=== PATIENT | female | born 1985 | race Caucasian/White ===

== ENCOUNTER 2016-12-06 21:11 | Emergency (ER) | payer MEDICAID, OTHER ==
--- NOTE | 2016-12-06 21:58 | RAD ---
RIGHT HAND THREE VIEW 12/06/16 HISTORY: Fall from standing landing on back and the right hand. COMPARISON: None. FINDINGS: Accessory ossicle on the dorsal aspect of the base of the fifth metacarpal. No acute fracture or mal alignment. Old fifth metacarpal neck fracture. IMPRESSION: No acute fracture or malalignment. POS: DASH
--- NOTE | 2016-12-06 22:01 | RAD ---
LUMBAR SPINE THREE VIEW 12/06/16 HISTORY: Fall from standing. COMPARISON: Lumbar spine 2011. FINDINGS: Five nonribbearing lumbar type vertebrae. No acute fracture or malalignment. Vertebral body heights and disc spaces are within normal limits except for mild narrowing at L5-S1 with some osteophyte for mation. IMPRESSION: Mild spondylosis of L5-S1. POS: DASH
[2016-12-06] MEDS ORDERED: HYDROcodone/Acetaminophen 5/325 mg Tablet ONE (22:07)
== END 2016-12-06 22:40 | disposition home or self-care (01) ==
LOC: BURERS 21:11
DX: S33.5XXA Sprain of ligaments of lumbar spine, initial encounter (principal); S60.221A Contusion of right hand, initial encounter; F17.210 Nicotine dependence, cigarettes, uncomplicated; W01.0XXA Fall on same level from slipping, tripping and stumbling without subsequent striking against object, initial encounter
CPT/HCPCS: 72100

== ENCOUNTER 2016-12-08 16:32 | Emergency (ER) | payer OTHER ==
[2016-12-08] MEDS ORDERED: Ketorolac Tromethamine 60 MG/2 ML VIAL ONE (16:53)
[2016-12-08] MEDS ORDERED: Cyclobenzaprine 10 MG TAB ONE (16:53)
== END 2016-12-08 17:09 | disposition home or self-care (01) ==
LOC: BURERS 16:32
DX: M54.41 Lumbago with sciatica, right side (principal); F17.210 Nicotine dependence, cigarettes, uncomplicated
CPT/HCPCS: 96372; J1885

== ENCOUNTER 2018-05-12 17:59 | Emergency (ER) | payer OTHER, SELFPAY | END 2018-05-12 18:20 | disposition home or self-care (01) | LOC: BURERS 17:59 | DX: B34.9 Viral infection, unspecified (principal); F17.210 Nicotine dependence, cigarettes, uncomplicated | CPT/HCPCS: 99281 ==

== ENCOUNTER 2018-06-27 08:21 | Emergency (ER) | payer SELFPAY ==
[2018-06-27] MEDS ORDERED: Ondansetron ODT 4 MG TAB ONE (08:34)
[2018-06-27 09:08] LABS: #Basophils 0.1 thou/uL (0.0-0.2); #Eosinphils 0.1 thou/uL (0.0-0.7); #Lymphocytes 2.1 thou/uL (1.20-3.40); #Monocytes 0.7 thou/uL (0.11-0.59); %Basophils 1.2 % (0.0-1.0); %Eosinophils 1.5 % (0.0-10.0); %Lymphocytes 30.1 % (21.0-51.0); %Monocytes 10.1 % (0.0-10.0); %Neutrophils 57.1 % (42.0-75.0); Hemoglobin 14.7 g/dL (12.0-16.0); Mean Corpuscular HGB CONC 34.1 g/dL (32.0-36.0); Mean Corpuscular Volume 82.2 fL (78.0-98.0); Mean Platelet Volume 7.5 fL (7.4-10.4); Platelet Count 241 thou/uL (130-400); RBC Distribution Width 12.9 % (11.5-14.5); Red Blood Cell (RBC) Count 5.24 mill/uL (4.20-5.40); White Blood Cell (WBC) Count 6.9 thou/uL (4.8-10.8)
[2018-06-27] MEDS ORDERED: Promethazine HCl 25 MG/ML VIAL ONE (09:08)
[2018-06-27] MEDS ORDERED: Sodium Chloride 0.9% 100 ML ONE (09:08)
[2018-06-27] MEDS ORDERED: Famotidine In NaCl 20 mg/50 ml Premix Bag ONE (09:08)
[2018-06-27 09:11] LABS: Clarity Cloudy (Clear); Glucose, Urine (Dipstick) Negative (Negative); Leukocyte Trace (Negative); Nitrite Negative (Negative); Protein, Urine (Dipstick) Negative (Neg-Trace); Urobilinogen 0.2 mg/dL (0.2-1.0); pH, Urine 8.5 (5.0-9.0)
[2018-06-27 09:12] LABS: Bilirubin Negative (Negative); Blood, Urine Negative (Negative)
[2018-06-27 09:15] LABS: Bacteria/HPF 2+ HPF (None Seen); RBC/HPF 0-3 HPF (0-3); WBC/HPF 0-3 HPF (0-3)
[2018-06-27 09:25] LABS: ALT (SGPT) 17 U/L (8-55); AST (SGOT) 17 U/L (5-34); Albumin 4.3 g/dL (3.5-5.0); Alkaline Phosphatase 107 U/L (40-150); Anion Gap 11 mmol/L (10-20); BUN (Urea Nitrogen) 13 mg/dL (7.0-18.7); Bilirubin, Total 0.4 mg/dL (0.2-1.2); Calc. Creatinine Clearance 0 mL/min (70-130); Calcium 9.3 mg/dL (7.8-10.44); Carbon Dioxide 23 mmol/L (22-29); Chloride 108 mmol/L (98-107); Estimated GFR-MDRD 75; Globulin 3.2 g/dL (2.4-3.5); Glucose 88 mg/dL (70-105); Lipase 22 U/L (8-78); Potassium 4.4 mmol/L (3.5-5.1); Protein, Total 7.5 g/dL (6.0-8.3); Sodium 138 mmol/L (136-145)
== END 2018-06-27 10:29 | disposition home or self-care (01) ==
LOC: BURERS 08:21
DX: R11.2 Nausea with vomiting, unspecified (principal); R19.7 Diarrhea, unspecified; Z87.891 Personal history of nicotine dependence; Z79.899 Other long term (current) drug therapy
CPT/HCPCS: 80053; 81003; 81015; 83690; 85025; 87086; 94760; 96365; 96375; J2550; J7050; Q0162

== ENCOUNTER 2018-09-17 18:13 | Emergency (ER) | payer SELFPAY ==
[2018-09-17] MEDS ORDERED: Clindamycin 150 MG CAP ONE (18:53)
[2018-09-17] MEDS ORDERED: HYDROcodone/Acetaminophen 10/325 mg Tablet ONE (18:53)
== END 2018-09-17 19:00 | disposition home or self-care (01) ==
LOC: BURERS 18:13
DX: K04.7 Periapical abscess without sinus (principal); K02.9 Dental caries, unspecified; Z87.891 Personal history of nicotine dependence; Z79.899 Other long term (current) drug therapy
CPT/HCPCS: 99282

== ENCOUNTER 2018-10-27 16:19 | Emergency (ER) | payer SELFPAY | END 2018-10-27 16:58 | disposition home or self-care (01) | LOC: BURERS 16:19 | DX: A08.4 Viral intestinal infection, unspecified (principal); F17.210 Nicotine dependence, cigarettes, uncomplicated; F41.9 Anxiety disorder, unspecified; F32.9 Major depressive disorder, single episode, unspecified; F43.10 Post-traumatic stress disorder, unspecified; Z79.899 Other long term (current) drug therapy | CPT/HCPCS: 99283 ==

== ENCOUNTER 2018-12-09 19:10 | Emergency (ER) | payer SELFPAY ==
--- NOTE | 2018-12-09 19:39 | RAD ---
XR Chest 1 View Portable HISTORY: Syncope COMPARISON: None. FINDINGS: Heart size and mediastinum are within normal limits. The lungs are clear of infiltrates. No significant bony findings. IMPRESSION: No active intrathoracic disease.
[2018-12-09 19:40] LABS: #Basophils 0.1 thou/uL (0.0-0.2); #Eosinphils 0.1 thou/uL (0.0-0.7); #Lymphocytes 1.9 thou/uL (1.20-3.40); #Monocytes 0.6 thou/uL (0.11-0.59); #Neutrophils 4.8 thou/uL (1.40-6.50); %Lymphocytes 25.6 % (21.0-51.0); %Monocytes 8.6 % (0.0-10.0); %Neutrophils 63.9 % (42.0-75.0); Hemoglobin 13.3 g/dL (12.0-16.0); Mean Corpuscular HGB CONC 32.3 g/dL (32.0-36.0); Mean Corpuscular Hemoglobin 27.9 pg (27.0-31.0); Mean Corpuscular Volume 86.4 fL (78.0-98.0); Mean Platelet Volume 8.7 fL (7.4-10.4); Platelet Count 209 thou/uL (130-400); RBC Distribution Width 12.8 % (11.5-14.5); Red Blood Cell (RBC) Count 4.77 mill/uL (4.20-5.40); White Blood Cell (WBC) Count 7.5 thou/uL (4.8-10.8)
[2018-12-09 19:51] LABS: Bilirubin Small (Negative); Blood, Urine Trace (Negative); Clarity Clear (Clear); Glucose, Urine (Dipstick) Negative (Negative); Leukocyte Negative (Negative); Nitrite Negative (Negative); Protein, Urine (Dipstick) 30 mg/dL (Neg-Trace); Urobilinogen 0.2 mg/dL (Less than 2)
[2018-12-09 19:53] LABS: ALT (SGPT) 11 U/L (8-55); AST (SGOT) 12 U/L (5-34); Albumin 4.2 g/dL (3.5-5.0); Alkaline Phosphatase 92 U/L (40-150); Anion Gap 14 mmol/L (10-20); BUN (Urea Nitrogen) 10 mg/dL (7.0-18.7); Bilirubin, Total 0.3 mg/dL (0.2-1.2); Calc. Creatinine Clearance 0 mL/min (70-130); Calcium 8.9 mg/dL (7.8-10.44); Carbon Dioxide 22 mmol/L (22-29); Chloride 110 mmol/L (98-107); Estimated GFR-MDRD 75; Glucose 97 mg/dL (70-105); Potassium 3.8 mmol/L (3.5-5.1); Protein, Total 7.2 g/dL (6.0-8.3); Sodium 142 mmol/L (136-145)
[2018-12-09 19:54] LABS: Bacteria/HPF 1+ HPF (None Seen); Calcium Oxalate Crystals 1+ HPF (None Seen); Mucous/LPF 3+ LPF (<2+); Squamous Epithelial 0-3 HPF (0-3)
[2018-12-09 19:55] LABS: Pregnancy Test - Urine (BHCG) Negative (Negative); Pregu Control Background? CLEAR/WHITE (CLR/WHITE); Pregu Control Bar Appear? YES (CONTROL BAR); Specific Gravity 1.033 (1.002-1.036)
== END 2018-12-09 20:07 | disposition home or self-care (01) ==
LOC: BURERS 19:10
DX: S06.0X9A Concussion with loss of consciousness of unspecified duration, initial encounter (principal); R55 Syncope and collapse; F41.9 Anxiety disorder, unspecified; F32.9 Major depressive disorder, single episode, unspecified; F17.210 Nicotine dependence, cigarettes, uncomplicated; Z79.899 Other long term (current) drug therapy; X58.XXXA Exposure to other specified factors, initial encounter
CPT/HCPCS: 71045; 80053; 81003; 81015; 81025; 84484; 85025; 85379; 93005; 94760

== ENCOUNTER 2019-02-15 15:13 | Emergency (ER) | payer SELFPAY ==
[2019-02-15 16:09] LABS: Bilirubin Negative (Negative); Blood, Urine Trace (Negative); Clarity Clear (Clear); Glucose, Urine (Dipstick) Negative (Negative); Leukocyte Negative (Negative); Nitrite Negative (Negative); Protein, Urine (Dipstick) Negative (Neg-Trace); Urobilinogen 0.2 mg/dL (Less than 2)
[2019-02-15 16:12] LABS: Pregnancy Test - Urine (BHCG) Negative (Negative); Pregu Control Background? CLEAR/WHITE (CLR/WHITE); Pregu Control Bar Appear? YES (CONTROL BAR); Specific Gravity 1.015 (1.002-1.036)
[2019-02-15 16:14] LABS: Bacteria/HPF None Seen HPF (None Seen); Broad Cast None Seen LPF (None Seen); Calcium Oxalate Crystals None Seen HPF (None Seen); Cellular Cast None Seen LPF (None Seen); Epithelial Cast None Seen LPF (None Seen); Fatty Cast None Seen LPF (None Seen); Mucous/LPF None Seen LPF (<2+); Other Casts None Seen LPF (None Seen); Oval Fat Bodies/HPF None Seen HPF (None Seen); RBC/HPF 0-3 HPF (0-3); Red Blood Cell Cast None Seen LPF (None Seen); Renal Epithelial None Seen HPF (None Seen); Sperm/HPF None Seen HPF (None Seen); Squamous Epithelial None Seen HPF (0-3); Transitional Epithelial None Seen HPF (None Seen); Trichomonas/HPF None Seen HPF (None Seen); Triple Phosphate Crystal None Seen HPF (None Seen); Unclassified Crystals None Seen HPF (None Seen); WBC/HPF None Seen HPF (0-3); Waxy Cast None Seen LPF (None Seen); White Blood Cell Cast None Seen LPF (None Seen); Yeast-Budding None Seen HPF (None Seen); Yeast-Hyphae None Seen HPF (None Seen)
== END 2019-02-15 16:55 | disposition home or self-care (01) ==
LOC: BURERS 15:13
DX: N92.0 Excessive and frequent menstruation with regular cycle (principal); F41.9 Anxiety disorder, unspecified; F32.9 Major depressive disorder, single episode, unspecified; F43.10 Post-traumatic stress disorder, unspecified; F17.210 Nicotine dependence, cigarettes, uncomplicated
CPT/HCPCS: 81003; 81015; 81025; 99284

== ENCOUNTER 2020-05-02 15:08 | Emergency (ER) | payer OTHER ==
[2020-05-02] MEDS ORDERED: Acetaminophen 500 MG TAB ONE (15:49)
== END 2020-05-02 15:51 | disposition home or self-care (01) ==
LOC: BURERS 15:08
DX: K04.7 Periapical abscess without sinus (principal); F17.290 Nicotine dependence, other tobacco product, uncomplicated
CPT/HCPCS: 99406

== ENCOUNTER 2020-06-20 08:33 | Emergency (ER) | payer OTHER ==
[2020-06-20 09:31] LABS: Bilirubin Negative (Negative); Blood, Urine Moderate (Negative); Clarity Clear (Clear); Glucose, Urine (Dipstick) Negative (Negative); Ketone, Urine Negative (Negative); Leukocyte Negative (Negative); Nitrite Negative (Negative); Protein, Urine (Dipstick) Negative (Neg-Trace); Specific Gravity, Urine 1.025 (1.005-1.030); Urobilinogen 0.2 mg/dL (Less than 2)
[2020-06-20 09:33] LABS: Bacteria/HPF None Seen HPF (None Seen); RBC/HPF 0-3 HPF (0-3); Squamous Epithelial 0-3 HPF (0-3); WBC/HPF None Seen HPF (0-3)
--- NOTE | 2020-06-20 09:52 | CT ---
CT Abdomen Pelvis WO Con: 06/20/2020 9:20 AM HISTORY: Abdominal pain COMPARISON: 12/15/2013 TECHNIQUE: Multiple contiguous axial images were obtained and a CT of the abdomen and pelvis without IV contrast . Coronal and sagittal reformats were performed. FINDINGS: This examination is limited for the evaluation of solid organs and vascular structures due to the lac k of intravenous contrast. Lower Chest: within normal limits. Abdomen: Liver: within normal limits. Bile Ducts: Normal caliber. Gallbladder: No calcified gallstones. Normal caliber wall. Pancreas: within normal limits. Spleen: within normal limits. Adrenals: within normal limits. Kidneys: within normal limits. Pelvis: Reproductive Organs: No pelvic masses. Ureters: within normal limits. Bladder: within normal limits. Bowel: Normal caliber. Mesenteric Lymph Nodes: No enlarged mesenteric lymph nodes. Peritoneum: No ascites or free air, no fluid collection. Vessels: Normal caliber aorta Retroperitoneum: within normal limits. Abdominal Wall: within normal limits. Bones: Unremarkable. IMPRESSION: No evidence of acute intraabdominal or pelvic abnormality.
== END 2020-06-20 10:11 | disposition home or self-care (01) ==
LOC: BURERS 08:33
DX: G89.18 Other acute postprocedural pain (principal); R10.33 Periumbilical pain; F17.210 Nicotine dependence, cigarettes, uncomplicated; Z85.41 Personal history of malignant neoplasm of cervix uteri
CPT/HCPCS: 74176; 81003; 81015

== ENCOUNTER 2020-10-25 13:40 | Emergency (ER) | payer OTHER ==
[2020-10-25] MEDS ORDERED: HYDROcodone/Acetaminophen 5/325 mg Tablet ONE (14:37)
[2020-10-25] MEDS ORDERED: Ibuprofen 800 MG TAB ONE (14:37)
== END 2020-10-25 15:15 | disposition home or self-care (01) ==
LOC: BURERS 13:40
DX: S16.1XXA Strain of muscle, fascia and tendon at neck level, initial encounter (principal); M54.5 Low back pain; F17.210 Nicotine dependence, cigarettes, uncomplicated; V89.2XXA Person injured in unspecified motor-vehicle accident, traffic, initial encounter
CPT/HCPCS: 72040; 72100

== ENCOUNTER 2021-02-21 11:46 | Emergency (ER) | payer OTHER ==
[2021-02-21] MEDS ORDERED: Ibuprofen 800 MG TAB ONE (12:25)
[2021-02-21] MEDS ORDERED: traMADol HCl 50 MG TAB ONE (12:26)
== END 2021-02-21 12:39 | disposition home or self-care (01) ==
LOC: BURERS 11:46
DX: S80.02XA Contusion of left knee, initial encounter (principal); F17.210 Nicotine dependence, cigarettes, uncomplicated; W22.8XXA Striking against or struck by other objects, initial encounter

== ENCOUNTER 2021-07-25 06:22 | Emergency (ER) | payer OTHER | END 2021-07-25 07:41 | disposition home or self-care (01) | LOC: BURERS 06:22 | DX: J11.1 Influenza due to unidentified influenza virus with other respiratory manifestations (principal); Z85.41 Personal history of malignant neoplasm of cervix uteri; F17.210 Nicotine dependence, cigarettes, uncomplicated | CPT/HCPCS: 99283 ==

== ENCOUNTER 2021-08-04 20:01 | Emergency (ER) | payer OTHER ==
[2021-08-04] MEDS ORDERED: CEFAZOLIN 1 GM VIAL ONE (20:32)
[2021-08-04] MEDS ORDERED: methylPREDNISolone Acetate 40 mg/ml Vial ONE (20:32)
[2021-08-04] MEDS ORDERED: Lidocaine 1% PF 5 ML VIAL ONE (20:53)
== END 2021-08-04 20:55 | disposition home or self-care (01) ==
LOC: BURERS 20:01
DX: J01.00 Acute maxillary sinusitis, unspecified (principal); F17.210 Nicotine dependence, cigarettes, uncomplicated
CPT/HCPCS: 96372; 99283; J0690; J2920

== ENCOUNTER 2022-06-22 21:30 | Emergency (ER) | payer OTHER ==
[2022-06-22] MEDS ORDERED: Sulfameth/Trimethoprim DS 800-160mg TAB ONE (22:13)
[2022-06-22] MEDS ORDERED: predniSONE 20 MG TAB ONE (22:13)
== END 2022-06-22 22:23 | disposition home or self-care (01) ==
LOC: BURERS 21:30
DX: L30.9 Dermatitis, unspecified (principal); F17.210 Nicotine dependence, cigarettes, uncomplicated
CPT/HCPCS: 99282; J7512

== ENCOUNTER 2024-09-07 09:54 | Emergency (ER) | payer OTHER | END 2024-09-07 10:38 | disposition home or self-care (01) | LOC: BURERS 09:54 | DX: M54.50 Low back pain, unspecified (principal); F17.210 Nicotine dependence, cigarettes, uncomplicated; V49.9XXA Car occupant (driver) (passenger) injured in unspecified traffic accident, initial encounter | CPT/HCPCS: 72100; 99284 ==